=== PATIENT | male | born 1985 | race Two or more races ===

== ENCOUNTER 2025-01-19 11:06 | Emergency (ER) | payer MEDICAID, SELFPAY ==
[2025-01-19 11:07] VITALS: BP 159/84; PULSE 109; RESP 18; TEMP 36.6; O2SAT 97
--- NOTE | 2025-01-19 11:21 | XR_ITS ---
Examination: Duplex scan of the lower extremity, unilateral right Date and time of exam: January 19, 2025 1132 hours INDICATIONS: Right leg swelling and pain 3 days Technique: Duplex scan of the extremity veins using B-mode/grayscale imaging and Doppler spectral analysis and color flow Attention is directed to internal echogenicity, compression and augmentation involving these veins, color flow assessment, spectral analysis Findings: Major deep venous structures in the extremity demonstrate normal course and caliber. There is no evidence of deep vein thrombosis. Normal color flow and spectral analysis Impression: Negative for DVT..
--- NOTE | 2025-01-19 11:21 | XR_ITS ---
Examination: Right ankle 2 views Technique one AP lateral right ankle 2 views Date and time: January 19, 2025 1215 hours INDICATIONS: Sudden onset ankle swelling and burning sensation beginning 3 days ago. FINDINGS: Mild osteopenia. Bimalleolar soft tissue swelling No fracture No cortical bone destruction IMPRESSION: Bimalleolar soft tissue swelling
--- NOTE | 2025-01-19 11:25 | PD.EDANKLE ---
Lower Extremity Injury RME/HPI General Chief Complaint: Ankle/Foot Injury Stated Complaint: Right ankle and right foot swollen X 3 days Time Seen by Provider: 01/19/25 11:18 Arrival date/time: 01/19/25 11:06 RME / HPI RME / HPI Narrative: 29-year-old male patient with no significant past medical history, came in for evaluation regarding right ankle swelling. Onset of symptoms for the last 3 days as worsening redness and swelling, right ankle, severity mild. Patient denies any fever denies any ankle pain denies any difficulty ambulating denies any trauma or fall. Patient denies any other complaints no medications taken prior to arrival. Related Data Previous Rx's ?Medication ?Instructions ?Recorded doxycycline monohydrate 100 mg 100 mg PO BID #20 caps 01/19/25 capsule ibuprofen 800 mg tablet 800 mg PO Q8H PRN pain #30 tabs 01/19/25 Allergies Allergy/AdvReac Type Severity Reaction Status Date / Time No Known Allergies Allergy Unverified 01/19/25 11:26 Review of Systems Review of Systems Narrative Review of Systems: Review of system reviewed and within normal limits except mentioned in HPI ED Exam Narrative Physical exam: VITAL SIGNS: Reviewed. GENERAL APPEARANCE: Alert and interactive, follows commands, no acute distress, HEAD AND FACE: Non-traumatic. ENT: PERRL, pink conjunctivitis, eyelid no trauma, Mucous membrane moist. NECK: Supple, nontender, no nuchal rigidity. CHEST: No tenderness, no crepitus, no paradoxical movement, no retractions. LUNGS: Clear, well ventilated, symmetric, no rales, no wheezing, no ronchi, no stridor, good breath sounds bilaterally. HEART: Regular rate, regular rhythm, no murmur, no gallops. ABDOMEN: Soft, positive bowel sounds, nondistended, no guarding, nontender, no rebound, no masses, RECTAL: Deferred. GENITAL: Deferred. NEUROLOGICAL: Gross motor function intact sensory function intact, Appropriate for age. MUSCULOSKELETAL: low back nontender, full range of motion. EXTREMITIES: Right lateral ankle swelling, mild redness, swelling all the way to the midfoot. Full range of motion. Nontender, distal capillary refill less than 2 seconds SKIN: Color pink, dry, no rash, no lacerations, no abrasions, no contusions. LYMPHATICS: Deferred. Course Quality Measures none Orders Category Date Time Status US venous doppler LE RT Stat Exams 01/19/25 11:21 Completed XR ankle RT 2V Stat Exams 01/19/25 11:21 Completed C-Reactive Protein Stat Lab 01/19/25 12:02 Completed CBC Stat Lab 01/19/25 12:02 Completed Comprehensive Metabolic Panel Stat Lab 01/19/25 12:02 Completed ESR [Sed Rate (ESR)] Stat Lab 01/19/25 12:02 Completed Partial Thromboplastin Time Stat Lab 01/19/25 12:02 Completed Uric Acid Stat Lab 01/19/25 12:02 Completed Clindamycin [Cleocin] Med 01/19/25 11:23 Discontinued 300 mg PO X1 ONE Ibuprofen Tab [Motrin Tab] Med 01/19/25 11:23 Discontinued 800 mg PO X1 ONE Vital Signs Vital signs: Vital Signs Temperature 97.9 F 01/19/25 11:07 Pulse Rate 109 H 01/19/25 11:07 Respiratory Rate 18 01/19/25 11:07 Blood Pressure 159/84 H 01/19/25 11:07 Pulse Oximetry (%) 97 01/19/25 11:07 Oxygen Delivery Method Room Air 01/19/25 11:07 Extremity Injury, Lower MDM Narrative MDM Narrative:: 29-year-old male patient with no significant past medical history, came in for evaluation regarding right ankle swelling. Onset of symptoms for the last 3 days as worsening redness and swelling, right ankle, severity mild. Patient denies any fever denies any ankle pain denies any difficulty ambulating denies any trauma or fall. Patient denies any other complaints no medications taken prior to arrival. Patient's workup UNREMARKABLE CBC no leukocytosis noted CMP unremarkable. CRP slightly elevated 6.1 x-ray of the ankle came back unremarkable except for soft tissue swelling. Venous ultrasound also came back unremarkable. I do not suspect any septic ankle since patient is ambulatory with no pain and tenderness. Full range of motion of the ankle joints. Patient was advised to closely monitor the ankle redness and swelling and return to emergency room for pain and inability to ambulate. Patient will be sent home on doxycycline and Motrin. Patient data External records reviewed:: None Clinical information provided by:: patient Social determinants that could affect healthcare access:: none Patient has the following chronic illnesses:: None How is presenting disease/condition affected by chronic disease/condition?: no chronic disease Evaluation data The following diagnostics were reviewed and interpreted by me:: lab results and radiology exam(s) Lab and/or radiology exams considered but not ordered:: None Interpretation Summary: See results MDM Medications / Prescriptions Medications or Prescriptions considered but not ordered:: None Medication administrations:: Medication Administration History Discontinued Medications Clindamycin HCl (Clindamycin 150 Mg Capsule) 300 mg PO X1 ONE Stop: 01/19/25 11:24 Last Admin: 01/19/25 12:25 Dose: 300 mg Documented By: JOAN Ibuprofen (Ibuprofen Tab 400 Mg Tablet) 800 mg PO X1 ONE Stop: 01/19/25 11:24 Last Admin: 01/19/25 12:24 Dose: 800 mg Documented By: JOAN Clindamycin, Motrin Consultations Consultation(s) initiated? (list below): No Diagnosis Extremity Injury, Lower Differential Diagnosis: ankle fracture and other (Cellulitis ankle, ankle swelling) Most likely diagnosis given after review of the tests above:: Cellulitis ankle Admission Indicated Admission indicated?: not indicated Admission Request Was there a request for admission?: No Disposition Plan Disposition Plan: Discharge Discharge Attestation Discharge Attestation: The patient and all family members were given an opportunity to ask questions and understood the discharge instructions. Discharge instructions specifically effects, indications for sooner follow up or return to the emergency department, and the expected course of current diagnosis. Patient condition: Stable Discharge Plan Plan Patient Disposition: HOME (Self Care) Discharge Disposition comment: stable Prescriptions/Referrals Prescriptions/Med Rec: New doxycycline monohydrate 100 mg capsule 100 mg PO BID Qty: 20 0RF ibuprofen 800 mg tablet 800 mg PO Q8H PRN (Reason: pain) Qty: 30 0RF Problem List Clinical Impression: Cellulitis of ankle Patient/Caregiver Discharge Instructions Discharge Activity: activity as tolerated Education Materials: Discharge Instructions for Cellulitis Additional Instructions: Thank you for the opportunity for serving you today. You are stable for discharged . You are advised to: Follow-up with your PCP in 1 to 2 days Return to ED for worsening of symptoms Increase oral fluids Take medication as prescribed Elevate your leg as needed Print Language: Citizen Of The [place] Stand Alone Forms: Stephany Award Info., Patient Portal Info Letter GLORIA/SABINA Supervising Physician GLORIA/SABINA Supervising Physician: MD Sybil
[2025-01-19 11:36] VITALS: BMI 39.2
[2025-01-19 12:16] LABS: Basophils % (Auto) 0 % (0-2.5); Eosinophils # (Auto) 0.1 Thou/mm3 (0.0-0.5); Eosinophils % (Auto) 1 % (0-10); Hematocrit 39.5 % (41.0-53.0); Hemoglobin 13.8 g/dL (13.5-16.0); Immature Granulocytes % (Auto) 0 % (0-0); Immature Granulocytes Auto 0.02 Thou/mm3 (0.00-0.00); Lymphocytes % (Auto) 20 % (10-50); Mean Corpuscular HGB Conc 34.9 g/dl (31.0-37.0); Mean Corpuscular Volume 89 fL (80-100); Monocytes # (Auto) 1.2 Thou/mm3 (0.0-0.8); Monocytes % (Auto) 13 % (0-12); Neutrophils # (Auto) 6.5 Thou/mm3 (1.8-7.7); Neutrophils % (Auto) 66 % (37-80); Nucleated Red Blood Cell % 0 /100 WBC (0); Platelet Count 243 Thou/mm3 (140-440); RDW Standard Deviation 41.6 fL (35.1-43.9); Red Blood Count 4.45 Miln/mm3 (4.50-5.90); White Blood Count 9.8 Thou/mm3 (3.8-10.6)
[2025-01-19] MEDS: IBUPROFEN TAB 400 MG TABLET 800 MG PO (12:24)
[2025-01-19] MEDS: CLINDAMYCIN 150 MG CAPSULE 300 MG PO (12:25)
[2025-01-19 12:32] LABS: Sed Rate (ESR) 41 mm/hr (0-15)
[2025-01-19 12:33] LABS: Partial Thromboplastin Time 27.6 Seconds (22.0-36.0)
[2025-01-19 12:36] LABS: Alanine Aminotransferase 41 U/L (10-49); Albumin, Serum 4.4 gm/dL (3.5-5.0); Albumin/Globulin Ratio 1.8 (1.2-2.2); Alkaline Phosphatase 57 U/L (46-116); Anion Gap 8 (7-16); Aspartate Amino Transferase 28 U/L (0-34); BUN/Creatinine Ratio 9 Ratio (12-20); Bilirubin,Total 0.9 mg/dL (0.3-1.2); Blood Urea Nitrogen 9 mg/dL (9-23); Calcium 9.7 mg/dL (8.3-10.6); Calcium (Corrected) 9.7 mg/dL (8.5-10.1); Carbon Dioxide 27.8 mMol/L (20.0-31.0); Chloride 102 mMol/L (98-107); Estimated Creatinine Clearance 117.8 mL/min (>60); Globulin 2.5 gm/dL (2.3-3.5); Glucose 126 mg/dL (74-106); Osmolality,Calculated 276 (275-295); Potassium 3.4 mMol/L (3.4-5.1); Sodium 138 mMol/L (136-145); Total Protein 6.9 gm/dL (5.7-8.2); eGFR > 60 See Note
[2025-01-19 13:09] LABS: C-Reactive Protein 6.1 mg/dL (0.0-0.9); Uric Acid 5.2 mg/dL (3.7-9.2)
== END 2025-01-19 14:31 | disposition home or self-care (01) ==
PROVIDERS: Nurse Practitioner Family; Emergency Provider Emergency Medicine
DX: L03.115 Cellulitis of right lower limb (principal); M79.604 Pain in right leg; M79.89 Other specified soft tissue disorders
CPT/HCPCS: 36415; 73600; 80053; 84550; 85025; 85652; 85730; 86140; 93971; 99284; A9270